=== PATIENT | female | born 1985 | race Caucasian/White ===

== ENCOUNTER 2017-07-31 02:39 | Inpatient (IN) | payer OTHER ==
[2017-07-31] MEDS ORDERED: Acetaminophen 500 MG TAB PO PRN (03:31)
[2017-07-31] MEDS ORDERED: Promethazine HCl 25 MG/ML VIAL IM PRN ×2 (03:31→05:01)
[2017-07-31] MEDS ORDERED: Ondansetron HCl/PF 4 MG/2 ML Vial IVP PRN ×3 (03:31→05:01)
[2017-07-31] MEDS: Lactated Ringer's 1,000 ML IV SCH ×3 (03:31→14:38)
[2017-07-31 03:32] VITALS: BMI 26.0
[2017-07-31] MEDS ORDERED: Bupivacaine 0.75% W/DEXTROSE 8.25% 2 ML AMP ONE (03:55)
[2017-07-31] MEDS: Bicitra 30 ML UDCUP PO SCH (04:01)
[2017-07-31] MEDS: CEFAZOLIN/Water 2 GM/20 ML SYRINGE SLOW IVP SCH (04:01)
--- NOTE | 2017-07-31 04:01 | PDOC.LDHP ---
Labor and Delivery H&P Chief complaint: loss of fluid HPI: 32 y/o at 37w1d who previously saw Dr. Michaud but hasn't seen anyone since April, presents with SROM clear fluid. No regular ctx, VB, or decreased FM. ROS neg for HEENT, cv, pulm, gi, gu, neuro, psych, skin, musculoskeletal or constitutional symptoms other than mentioned above. OB History Details: 2 prior deliveries at 36 weeks via LTCS 3 prior at 37 weeks Current complications: other (limited care) Past Medical History: None Current medications: pre- vitamins Previous surgical history: low tranverse CS, other (LASIK, hand) Allergies/Adverse Reactions: Allergies Allergy/AdvReac Type Severity Reaction Status Date / Time No Known Allergies Allergy Unverified 07/31/17 03:14 Social history: none - Physical Exam Vital signs reviewed and normal: yes General: NAD, resting Lungs: nonlabored breathing Abdomen: gravid Extremeties: no edema FHT: category 1 (140s, mod variability, + accels, no decels) Mescal contractions every: occasional - Vaginal Exam cm dilated: 1 Effacement: 75% Station: 0 - Assessment L&D Assessment: term rupture in membranes - Plan Plan: admit to L&D, to OR for section, informed consent obtained, anesthesia consult for pain management
[2017-07-31] MEDS ORDERED: PHENYLEPHRINE-NS 100 MCG/ML 10 ML SYRINGE ONE (04:04)
[2017-07-31] MEDS ORDERED: Oxytocin 10 UNITS/ML VIAL ONE ×3 (04:04→05:38)
[2017-07-31] MEDS ORDERED: Lidocaine 1% (PF) 30 ML VIAL ONE (04:04)
[2017-07-31] MEDS ORDERED: Morphine PF 1 MG/ML SYR ONE (04:04)
[2017-07-31 04:11] LABS: Hemoglobin 9.5 g/dL (12.0-16.0); Mean Corpuscular HGB CONC 31.3 g/dL (32.0-36.0); Mean Corpuscular Volume 73.5 fl (81.0-99.0); Mean Platelet Volume 9.4 fL (7.4-10.4); Platelet Count 309 thou/uL (130-400); RBC Distribution Width 17.3 % (11.5-14.5); Red Blood Cell (RBC) Count 4.11 mill/uL (4.20-5.40); White Blood Cell (WBC) Count 10.3 thou/uL (4.8-10.8)
[2017-07-31 04:35] LABS: HBSAg Index 0.31 S/CO (0-0.99); HIV (1/2) Antibody/Antigen Non-Reactive (NonReactive); HIV 1/2 INDEX 0.07 S/CO (<1.00); Hep B Surf Ag Non-Reactive S/CO (NonReactive)
[2017-07-31] MEDS ORDERED: Methylergonovine 0.2 MG/ML VIAL ONE (04:42)
[2017-07-31 05:01] LABS: Syphilis Antibody Nonreactive (Nonreactive); Syphilis Antibody Index 0.05 S/CO (<1.00 Non-Reactive)
[2017-07-31] MEDS ORDERED: Promethazine HCl 25 MG SUPP PR PRN (05:01)
[2017-07-31] MEDS ORDERED: HYDROmorphone 2 MG/ML VIAL SLOW IVP PRN (05:01)
[2017-07-31] MEDS ORDERED: diphenhydrAMINE 50 MG/ML VIAL IVP PRN (05:01)
[2017-07-31] MEDS ORDERED: Naloxone HCl 0.4 mg/ml Vial IV PRN (05:01)
[2017-07-31] MEDS ORDERED: Meperidine HCl/PF 25 MG/ML VIAL SLOW IVP PRN (05:01)
[2017-07-31] MEDS ORDERED: Naloxone HCl 0.4 mg/ml Vial IVP PRN ×2 (05:01)
[2017-07-31] MEDS ORDERED: Eucerin (Mineral Oil/Petrolatum,White) 30 gm Jar TOP PRN (05:01)
[2017-07-31] MEDS ORDERED: Ketorolac Tromethamine 30 MG/ML VIAL IVP SCH (05:15)
[2017-07-31] MEDS ORDERED: Communication Order-Pharmacy FS SCH (05:15)
[2017-07-31 05:23] LABS: Amphetamine Not Detected (NotDetected); Barbiturates Screen Not Detected (NotDetected); Benzodiazepine Screen Not Detected (NotDetected); Cocaine Metabolite Screen Not Detected (NotDetected); Medtox Control Line Valid? VALID (VALID); Medtox Reader # READER 4; Methadone Not Detected (NotDetected); Methamphetamine Not Detected (NotDetected); Opiate Screen Not Detected (NotDetected); Oxycodone Screen Not Detected (NotDetected); Phencyclidine (PCP) Not Detected (NotDetected); THC/Cannabinoid Screen Not Detected (NotDetected); Tricyclic Screen Not Detected (NotDetected)
[2017-07-31 05:28] LABS: Actual Bicarbonate (HCO3a) 27.5 mEq/L (22-26); Base Excess (BEa) -2.3 mEq/L (0 (+/-) 2.5)
[2017-07-31] MEDS ORDERED: Ketorolac Tromethamine 30 MG/ML VIAL ONE (06:56)
[2017-07-31] MEDS: Ketorolac Tromethamine 30 MG/ML VIAL IVP PRN ×3 (06:57→22:20)
[2017-07-31] MEDS ORDERED: Lanolin Ointment 7 GM TUBE TOP PRN (08:33)
[2017-07-31] MEDS ORDERED: Adacel (T-DAP) 0.5 ML VIAL IM ONE (08:33)
[2017-07-31] MEDS ORDERED: Varicella virus, LIVE 0.5 ML VIAL SC ONE (08:33)
[2017-07-31] MEDS ORDERED: Simethicone Chewable 80 MG TAB PO PRN (08:33)
[2017-07-31] MEDS ORDERED: Measles/Mumps/Rubella 10 MCG/0.5 ML VIAL SC ONE (08:33)
[2017-07-31] MEDS: Prenatal Vitamin 1 TAB PO SCH (09:05)
[2017-07-31 10:18] LABS: Hemoglobin 9.1 g/dL (12.0-16.0); Mean Corpuscular Hemoglobin 23.1 pg (27.0-31.0); Mean Corpuscular Volume 74.5 fl (81.0-99.0); Mean Platelet Volume 9.4 fL (7.4-10.4); Platelet Count 246 thou/uL (130-400); RBC Distribution Width 17.3 % (11.5-14.5); Red Blood Cell (RBC) Count 3.96 mill/uL (4.20-5.40)
--- NOTE | 2017-07-31 13:42 | DN-2 ---
DATE OF PROCEDURE: 07/31/2017 RESIDENT SURGEON: Keya De La Paz MD ATTENDING SURGEON: Chloé Blood MD PROCEDURE: Repeat low transverse section. PREOPERATIVE DIAGNOSES: 1. Term intrauterine , spontaneous rupture of membranes. 2. Previous x2. 3. Scant care. 4. Grand multiparity. POSTOPERATIVE DIAGNOSES: 1. Term intrauterine , spontaneous rupture of membranes. 2. Previous x2. 3. Scant care. 4. Grand multiparity. ANESTHESIA: Spinal. INDICATIONS: Patient is a 32-year-old G7, P3-2-1-5, now P4-2-1-6 at 37 weeks and 1 day who presented with spontaneous rupture of membranes. PROCEDURE IN DETAIL: After risks, benefits, and alternatives were explained to the patient, she gave informed consent. Preoperative antibiotics included cefazolin 2 grams IV. The patient was taken to the operating room, where spinal anesthesia was initiated. She was placed in the supine position wi th left tilt and prepped and draped in the usual sterile fashion. A Pfannenstiel incision was made w ith a scalpel and carried down to the level of the fascia, which was sharply nicked. The fascial cut was extended bilaterally with scalpel and Barlow scissors. The inferior and superior edges of the cut fascial edges were elevated with Marshall clamps and underlying rectus muscles were sharply and bluntl y dissected free. The recti were divided digitally and retracted manually. The peritoneum was enter ed bluntly and retracted manually. The Wei O was placed. A low transverse score was made with a scalpel and the uterus was entered in the midline. Clear fluid was seen. The hysterotomy was extend ed manually in a cephalocaudal manner. The infant was noted to be vertex and was easily delivered by fundal pressure. Mouth and nares were bulb suctioned. Cord was clamped and cut and grossly normal. Female infant was handed to the waiting nurse. Cord blood was obtained. The placenta was manually extracted and found to be intact with three-vessel cord and sent to pathology. The uterus was exter nalized. The endometrium was curetted with a dry lap. The hysterotomy was repaired with a running l ocking 1-0 Monocryl suture. Following this, hemostasis was noted. The abdomen was suctioned free of clots. The fascia was closed with a running nonlocking 0 PDS suture x2. The subcutaneous tissue wa s irrigated and all bleeders were cauterized. The skin was approximated with 4-0 Monocryl suture and a pressure dressing was placed. All counts were correct. The patient tolerated the procedure well and was taken to the recovery room in stable condition. ESTIMATED BLOOD LOSS: 600 mL. COMPLICATIONS: None. SPECIMENS: Cord blood sent to lab for blood type. FINDINGS: Grossly normal female infant with Apgars of 7 and 9. Grossly normal placenta with 3-vesse l cord sent to pathology. DRAINS: Tracy to gravity draining clear urine with urine output of 100 mL.
[2017-08-01] MEDS: CEFAZOLIN/Water 2 GM/20 ML SYRINGE SLOW IVP SCH (03:45)
[2017-08-01] MEDS: HYDROcodone/Acetaminophen 5/325 mg Tablet PO PRN ×4 (04:33→20:02)
[2017-08-01] MEDS: Ibuprofen 800 MG TAB PO SCH ×3 (06:12→21:40)
[2017-08-01] MEDS: Lactated Ringer's 1,000 ML IV SCH ×4 (06:46→17:18)
--- NOTE | 2017-08-01 08:55 | PRG ---
DATE OF SERVICE: 08/01/2017 The patient is postop day 1, status post a repeat at term. The patient presented with a [facility] care at 37 weeks with confirmed rupture of membranes. The patient reports that she is tolerating p.o. well, voiding on her own, having decreased lochia and good pain control. PHYSICAL EXAMINATION: VITAL SIGNS: Blood pressure is 111/66, temperature 98.6, pulse of 95, respiratory rate of 20. GENERAL: She appears to be in no acute distress. She is alert and oriented, cooperative and pleasan t to interact with. HEENT: Head is normocephalic, atraumatic. ABDOMEN: Soft. Fundus is appropriately tender. Incision is clean, dry, and intact with suture. EXTREMITIES: Nontender with minimal edema and symmetrical. Her post-delivery hemoglobin is 9.1, hematocrit 29.5, platelets 246,000. ASSESSMENT AND PLAN: The patient is postop day #1 status post a repeat at term for rupture of membranes. We will continue routine postoperative care for the next 2-3 days.
[2017-08-01] MEDS: Prenatal Vitamin 1 TAB PO SCH (09:10)
[2017-08-01] MEDS: Ferrous Sulfate 325 MG TAB PO SCH ×3 (09:11→17:13)
[2017-08-01] MEDS: Bicitra 30 ML UDCUP PO SCH (09:12)
[2017-08-02] MEDS: HYDROcodone/Acetaminophen 5/325 mg Tablet PO PRN ×6 (00:27→22:09)
[2017-08-02] MEDS: Lactated Ringer's 1,000 ML IV SCH ×3 (05:03→19:27)
[2017-08-02] MEDS: Ibuprofen 800 MG TAB PO SCH ×3 (06:04→22:10)
--- NOTE | 2017-08-02 07:35 | PDOC.PP ---
Post Progress Note Post Day #: 2 PO intake tolerated: yes Flatus: yes Ambulation: yes Vital Signs (12 hours) Temp Pulse Resp BP 08/02/17 04:25 98.0 F 73 18 08/02/17 00:20 98.2 F 86 18 115/65 08/01/17 20:00 98.2 F 77 18 122/77 Weight Weight 147 lb - Physical Examination General: NAD Cardiovascular: no m/r/g, RRR Respiratory: clear to auscultation bilaterally, non-labored breathing Abdominal: + bowel sounds, lochia, no distention Extremities: negative homans (B) Skin: CS incision dry & intact, no rash Neurological: no gross focal deficits Psychiatric: A&Ox3, normal affect Result Diagrams: 07/31/17 09:55 Additional Labs: Post Labs Blood Type A POSITIVE 07/31/17 03:31 Hep Bs Antigen Non-Reactive S/CO (NonReactive) 07/31/17 03:31 (1) Status post repeat low transverse section Code(s): Z98.891 - HISTORY OF UTERINE SCAR FROM PREVIOUS SURGERY Status: Acute - Assessment/Plan doing well. home 08/03
[2017-08-02] MEDS: Ferrous Sulfate 325 MG TAB PO SCH ×2 (09:20→17:47)
[2017-08-02] MEDS: Prenatal Vitamin 1 TAB PO SCH (09:20)
[2017-08-02 20:34] VITALS: TEMP 98
[2017-08-03] MEDS: HYDROcodone/Acetaminophen 5/325 mg Tablet PO PRN ×3 (02:24→10:22)
[2017-08-03] MEDS: Lactated Ringer's 1,000 ML IV SCH ×2 (03:59→09:32)
[2017-08-03] MEDS: Ibuprofen 800 MG TAB PO SCH (06:30)
[2017-08-03 08:41] VITALS: BP 143/77
[2017-08-03] MEDS: Ferrous Sulfate 325 MG TAB PO SCH (09:16)
[2017-08-03] MEDS: Prenatal Vitamin 1 TAB PO SCH (09:16)
--- NOTE | 2017-08-03 13:33 | DIS ---
DATE OF ADMISSION: 07/31/2017 DATE OF DISCHARGE: 08/03/2017 DISCHARGE DIAGNOSES: 1. Intrauterine at 37 weeks. 2. Spontaneous rupture of membranes. 3. Previous . PROCEDURE: Repeat lower transverse . HOSPITAL COURSE: The patient is a 32-year-old female who presented to Labor and Delivery with compla ints of rupture of membranes. She was without any private OB provider at the time of presentation. She was diagnosed with rupture of membranes and the patient went to proceed with a repeat lower trans verse section. For complete details, please refer to the operative note. The procedure cali nt was uncomplicated. The patient was then sent to recovery and then for continued care. She is now postop day #3. She reports she is tolerating p.o. well, having good pain control and hav ing decreased lochia and ambulating. PHYSICAL EXAMINATION: VITAL SIGNS: Today blood pressure 132/79, temperature 98.0, pulse of 81, respiratory rate of 20. GENERAL: She appears to be in no acute distress. She is alert and oriented, cooperative and pleasan t to interact with. HEENT: Normocephalic, atraumatic. ABDOMEN: Appropriately tender. Incision is clean, dry, and intact with suture. EXTREMITIES: Nonte nder with minimal edema and symmetrical. The patient is being discharged to home. She has instructions to follow up with [facility] [place] in 2 weeks for an incision check. She has instructions to seek medical attention sooner if she experiences fever, increasing pain or bleeding. She will be discharged home with ibuprofen 800 m g #30, Tramadol 50 mg 1-2 tablets p.o. q.4 hours p.r.n. for pain, #20.
== END 2017-08-03 13:00 | disposition home or self-care (01) | DRG 766 ==
LOC: L&D/OP 02:39 → L&D 03:20 → 3SW 08:32
PROVIDERS: ADMIT Obstetrics & Gynecology; ATTEND Obstetrics & Gynecology
PROC: 10D00Z1 Extraction of Products of Conception, Low, Open Approach (ICD-10-PCS; principal; 2017-07-31)
DX: O34.211 Maternal care for low transverse scar from previous cesarean delivery (principal); Z37.0 Single live birth; Z3A.37 37 weeks gestation of pregnancy; O42.90 Premature rupture of membranes, unspecified as to length of time between rupture and onset of labor, unspecified weeks of gestation
CPT/HCPCS: 36415; 51702; 80306; 82805; 85027; 86762; 86780; 86850; 86900; 86901; 87340; 87389; 88307; 99285; A4216; C1751; J1885; J2001; J2210; J2274; J2405; J2590; J3490